=== PATIENT | female | born 1995 | race African-American/Black ===

== ENCOUNTER 2018-10-14 02:36 | Inpatient (IN) | payer OTHER ==
[~2018-10-14] VITALS: Ht 157.5 cm; Wt 59.9 kg
[2018-10-14] MEDS ORDERED: DEXT 5%/LR + PITOCIN 20UNITS/L 1,000 ML IV SCH ×2 (03:27→21:31)
[2018-10-14] MEDS ORDERED: PREN1TAB78 MT (03:27)
[2018-10-14] MEDS ORDERED: METHYLERGONOVINE MALEATE 0.2 MG/ML IM PRN (03:30)
[2018-10-14] MEDS ORDERED: NALOXONE HCL 0.4 MG/ML 1ML VIAL IM PRN (03:30)
[2018-10-14] MEDS ORDERED: LIDOCAINE HCL 1% 20ML VIAL (Pyxis) INJ INFIL SCH (03:30)
[2018-10-14] MEDS ORDERED: BUTORPHANOL TARTRATE 2 MG/ML VIAL IV PRN (03:30)
[2018-10-14] MEDS ORDERED: AMPICILLIN 2,000 MG in SODIUM CHLORIDE 0.9% 100 ML IV SCH (03:42)
[2018-10-14] MEDS: LACTATED RINGERS 1,000 ML IV SCH ×3 (04:24→15:03)
[2018-10-14 05:31] LABS: BASOPHILS % 0.4 % (0.0-2.0); HEMATOCRIT. 31.8 % (36.0-48.0); HEMOGLOBIN. 10.6 g/dL (12.0-16.0); LYMPHOCYTES % 18.9 % (20.0-50.0); MEAN CORPUSCULAR HEMOGLOBIN 27.6 pg (28.0-32.0); MEAN CORPUSCULAR VOLUME 82.5 fL (81.0-99.0); MEAN PLATELET VOLUME 11.6 fl (7.4-10.4); MONOCYTES % 8.8 % (2.0-8.0); NEUTROPHILS % 70.9 % (40.0-76.0); PLATELET 160 x1000/uL (130-400); RED BLOOD CELL COUNT 3.85 mill/uL (4.2-5.4); RED CELL DISTRIBUTION WIDTH 14.1 % (11.6-14.6)
[2018-10-14 05:36] LABS: CHLORIDE 107 mEq/L (98-107)
[2018-10-14 05:55] LABS: CLARITY URINE CLOUDY (CLEAR); COLOR URINE YELLOW (YELLOW); KETONES URINE NEGATIVE (NEGATIVE); LEUKOCYTE ESTERASE URINE 3+ (NEGATIVE); NITRITE URINE NEGATIVE (NEGATIVE); OCCULT BLOOD URINE TRACE (NEGATIVE); PH URINE 6.5 (4.5-8.0); PROTEIN URINE NEGATIVE (NEGATIVE); SPECIFIC GRAVITY URINE 1.009 (1.005-1.030); UROBILINOGEN URINE 0.2 E.U./dL (0.2-1.0)
[2018-10-14 06:02] LABS: D-DIMER 2.01 mg/L FEU (<0.50); INR 0.9; PARTIAL THROMBOPLASTIN TIME 27.3 sec (23.4-31.0); PROTHROMBIN TIME 9.1 sec (9.6-11.0)
[2018-10-14] MEDS: MAGNESIUM 20 G PREMIX (L & D) 500 ML IV SCH ×2 (06:09→13:49)
[2018-10-14 06:47] LABS: *AMPHETAMINES SCREEN URINE NEGATIVE (NEGATIVE); *BARBITURATES SCREEN URINE NEGATIVE (NEGATIVE); *BENZODIAZEPINES SCREEN URINE NEGATIVE (NEGATIVE); *COCAINE SCREEN URINE NEGATIVE (NEGATIVE); CANNABINOID URINE SCREEN NEGATIVE (NEGATIVE); METHADONE URINE SCREEN NEGATIVE (NEGATIVE); OPIATES URINE SCREEN NEGATIVE (NEGATIVE); PHENCYCLIDINE URINE SCREEN NEGATIVE (NEGATIVE)
[2018-10-14] MEDS ORDERED: ROPIVACAINE HCL/PF EPIDURAL 200 ML EP SCH (07:00)
[2018-10-14 07:26] LABS: HEPATITIS B SURFACE ANTIGEN NEGATIVE
[2018-10-14] MEDS ORDERED: LABETALOL HCL 5MG/ML VIAL 20ML IV PRN ×3 (08:00)
[2018-10-14] MEDS: AMPICILLIN 2000MG in SODIUM CHLORIDE 0.9% 100ML IV SCH ×2 (11:13→16:28)
[2018-10-14] MEDS ORDERED: FENTANYL CITRATE/PF 50MCG/ML 2ML VIAL ONE (12:39)
[2018-10-14] MEDS ORDERED: LIDOCAINE HCL/PF 2% 20MG/ML 5 ML/VIAL ONE (15:41)
[2018-10-14 16:20] LABS: HEMATOCRIT. 33.2 % (36.0-48.0); HEMOGLOBIN. 10.7 g/dL (12.0-16.0); MEAN CORPUSCULAR HEMOGLOBIN 26.9 pg (28.0-32.0); MEAN CORPUSCULAR VOLUME 83.1 fL (81.0-99.0); MEAN PLATELET VOLUME 11.2 fl (7.4-10.4); PLATELET 161 x1000/uL (130-400); RED BLOOD CELL COUNT 3.99 mill/uL (4.2-5.4); RED CELL DISTRIBUTION WIDTH 14.5 % (11.6-14.6)
[2018-10-14 16:39] LABS: PLATELET ESTIMATE NORMAL
[2018-10-14] MEDS ORDERED: MINERAL OIL 30ML BOTTLE PO NR (17:22)
[2018-10-14] MEDS ORDERED: LIDOCAINE HCL 1% 20ML VIAL (Pyxis) INJ ONE (20:17)
[2018-10-14] MEDS ORDERED: BENZOCAINE/LANOLIN/ALOE VERA SPRAY TOP PRN (21:45)
[2018-10-14] MEDS ORDERED: DIPHENHYDRAMINE 25MG CAPSULE PO PRN (21:45)
[2018-10-14] MEDS ORDERED: LANOLIN OINT 7GM TUBE TOP PRN (21:45)
[2018-10-14] MEDS ORDERED: BISACODYL 10MG SUPP PR PRN (21:45)
[2018-10-14] MEDS ORDERED: ACETAMINOPHEN WITH CODEINE 300/30MG TABLET PO PRN ×2 (21:45)
[2018-10-14] MEDS ORDERED: GLYCERIN/WITCH HAZEL LEAF MEDICATED PAD TOP PRN (21:45)
[2018-10-14 22:15] VITALS: BP 155/103
[2018-10-14 22:45] VITALS: BP 146/96
[2018-10-14 23:15] VITALS: BP 139/105
[2018-10-14 23:45] VITALS: BP 140/90
[2018-10-15] MEDS: MAGNESIUM 20 G PREMIX (L & D) 500 ML IV SCH (01:31)
[2018-10-15 04:00] VITALS: BP 154/102
[2018-10-15 07:30] VITALS: BP 136/87
[2018-10-15] MEDS ORDERED: MAGNESIUM/ALUMINUM HYDROXIDE/SIMETHICONE 30ML UDC PO SCH (07:30)
[2018-10-15] MEDS: FERROUS SULFATE 325MG TABLET PO SCH (08:21)
[2018-10-15] MEDS: SIMETHICONE 80MG TABLET CHEW PO SCH (08:21)
[2018-10-15] MEDS: PRENATAL VIT/FE FUMARATE/FA TABLET PO SCH (08:21)
[2018-10-15] MEDS: IBUPROFEN 400MG TABLET PO PRN ×2 (08:21→14:42)
[2018-10-15 09:00] VITALS: BP 143/96
[2018-10-15] MEDS: LABETALOL HCL 200MG TABLET PO SCH ×2 (09:09→21:08)
[2018-10-15 09:55] LABS: HEMATOCRIT. 27.6 % (36.0-48.0); HEMOGLOBIN. 9.2 g/dL (12.0-16.0); MEAN CORPUSCULAR HEMOGLOBIN 27.3 pg (28.0-32.0); MEAN CORPUSCULAR VOLUME 82.1 fL (81.0-99.0); MEAN PLATELET VOLUME 10.8 fl (7.4-10.4); PLATELET 161 x1000/uL (130-400); RED BLOOD CELL COUNT 3.36 mill/uL (4.2-5.4); RED CELL DISTRIBUTION WIDTH 14.2 % (11.6-14.6)
[2018-10-15 10:07] VITALS: BP 127/80
[2018-10-15 10:43] LABS: PLATELET ESTIMATE NORMAL
[2018-10-15 15:00] VITALS: BP 144/84
[2018-10-15 20:00] VITALS: BP 150/92
[2018-10-15] MEDS ORDERED: DOCUSATE SODIUM 100MG CAPSULE PO SCH (21:00)
[2018-10-16 04:00] VITALS: BP 142/87
[2018-10-16] MEDS: LABETALOL HCL 200MG TABLET PO SCH (09:02)
[2018-10-16] MEDS: PRENATAL VIT/FE FUMARATE/FA TABLET PO SCH (09:50)
[2018-10-16] MEDS: SIMETHICONE 80MG TABLET CHEW PO SCH (09:52)
[2018-10-16] MEDS: FERROUS SULFATE 325MG TABLET PO SCH (09:52)
== END 2018-10-16 12:30 | disposition home or self-care (01) | DRG 806 ==
LOC: 8 EST LDRP 02:36 → OBSVTOIN 02:36 → 8EST 22:15
PROVIDERS: ADMIT Obstetrics & Gynecology; ATTEND Obstetrics & Gynecology
PROC: 10E0XZZ Delivery of Products of Conception, External Approach (ICD-10-PCS; principal; 2018-10-14)
PROC: 0W8NXZZ Division of Female Perineum, External Approach (ICD-10-PCS; 2018-10-14)
PROC: 3E0R3BZ Introduction of Anesthetic Agent into Spinal Canal, Percutaneous Approach (ICD-10-PCS; 2018-10-14)
PROC: 00HU33Z Insertion of Infusion Device into Spinal Canal, Percutaneous Approach (ICD-10-PCS; 2018-10-14)
DX: O48.0 Post-term pregnancy (principal); D62 Acute posthemorrhagic anemia; Z37.0 Single live birth; O98.32 Other infections with a predominantly sexual mode of transmission complicating childbirth; A59.9 Trichomoniasis, unspecified; O14.94 Unspecified pre-eclampsia, complicating childbirth; O90.81 Anemia of the puerperium; O13.4 Gestational [pregnancy-induced] hypertension without significant proteinuria, complicating childbirth; O69.81X0 Labor and delivery complicated by cord around neck, without compression, not applicable or unspecified; O77.0 Labor and delivery complicated by meconium in amniotic fluid; Z3A.39 39 weeks gestation of pregnancy
CPT/HCPCS: 36415; 76805; 80305; 82565; 83735; 84520; 84550; 85379; 85384; 86592; 86703; 86762; 86850; 86900; 87077; 87340; 99281; J0290; J2590; J2795; J3010; J3475; J3490; J7050; J7120